=== PATIENT | female | born 1995 ===

== ENCOUNTER 2018-07-03 06:03 | Day surgery (SDC) | payer OTHER ==
[2018-07-02 13:26] VITALS: BMI 23.8
[2018-07-03] MEDS ORDERED: fentaNYL CITRATE 250 MCG/5 ML VIAL ONE (07:40)
[2018-07-03] MEDS ORDERED: ROCURONIUM BROMIDE 50 MG/5 ML VIAL ONE ×2 (07:40→09:44)
[2018-07-03] MEDS ORDERED: PROPOFOL 20 ML ONE (07:41)
[2018-07-03] MEDS ORDERED: LIDOCAINE HCL/PF 2% SDV 5ML VIAL ONE (07:41)
[2018-07-03] MEDS ORDERED: SUCCINYLCHOLINE CHLORIDE 200 MG/10 ML VIAL ONE (07:41)
[2018-07-03] MEDS ORDERED: MIDAZOLAM HCL 2 MG/2 ML SINGLE DOSE VIAL ONE (07:41)
[2018-07-03] MEDS ORDERED: BUPIVACAINE HCL/PF 0.5% (5MG/ML) 10 ML VIAL ONE (08:29)
--- NOTE | 2018-07-03 08:54 | HP ---
History & Physical Update - History History: No Change - Physical Physical: No Change - Assessment Assessment: No Change - Plan Plan: No Change
[2018-07-03] MEDS ORDERED: ceFAZolin SODIUM 1 GM VIAL IVPB ONE (09:08)
[2018-07-03] MEDS ORDERED: ceFAZolin SODIUM 1 GM VIAL ONE (09:30)
[2018-07-03] MEDS ORDERED: BUPIVACAINE HCL/PF 0.5% (5MG/ML) 10 ML VIAL IJ ONE ×2 (10:59)
[2018-07-03] MEDS ORDERED: NEOSTIGMINE METHYLSULFATE 0.5 MG/ML - 10 ML MDV ONE (11:07)
[2018-07-03] MEDS ORDERED: GLYCOPYRROLATE 0.2 MG/1 ML VIAL ONE (11:07)
[2018-07-03] MEDS ORDERED: KETOROLAC TROMETHAMINE 30 MG/1 ML VIAL ONE (11:08)
--- NOTE | 2018-07-03 11:52 | OP ---
Operative Note - Note: Operative Date: 07/03/18 Pre-Operative Diagnosis: Bilateral Ovarian cysts Operation: Laparoscopic robotic assisted bilateral ovarian cystectomy Findings: as dictated Implants: n/a Post-Operative Diagnosis: Same as Pre-op Surgeon: Marielle Singh Tubular Splitting Machine Tender: Carlyn Paredes Anesthesiologist/SALES FLOOR MANAGER: Haja Dickey Anesthesia: General, Local (200cc Marcaine injected to incision sites at completion of case) Specimens Removed: Left and right ovarian cyst Estimated Blood Loss (mls): 100 (ml) Drains, Volume Out (mls): 200 (ml yellow urine) Fluid Volume Replaced (mls): 900 (ml IVF) Operative Report Dictated: Yes
--- NOTE | 2018-07-03 11:55 | SURG ---
Surgery Admitting Officer Note Admitting Officer: Carlyn Paredes PA-C Date of Service: 07/03/18 Diagnosis: Bilateral Ovarian cysts Procedure: Laparoscopic robotic assisted bilateral ovarian cystectomy I was present for the entirety of the operative procedure. For further detail, please refer to operative report. Visit type - Case Type Case Type: Scheduled - Emergency Emergency Visit: No - New patient This patient is new to me today: Yes Date on this admission: 07/03/18 - Critical Care Critical Care patient: No
[2018-07-03] MEDS ORDERED: IBUPROFEN 600 MG TABLET (FP) PO PRN (12:29)
--- NOTE | 2018-07-03 12:35 | OP ---
Operative Note - Note: Operative Date: 07/03/18 Pre-Operative Diagnosis: Pelvic Pain. ovarian cyst. endometrioma Operation: Laparoscopic robotic bilateral ovarian cystectomies Findings: bilateral ovarian endometriomas right and left cystectomy mild hydrosalpinx normal fimbrias ovarians stuck together and attached to bowel Post-Operative Diagnosis: Same as Pre-op Surgeon: Marielle Singh Data Keyer: Carlyn Paredes (Etelvina Mast) Anesthesia: General Estimated Blood Loss (mls): 100 Operative Report Dictated: Yes
[2018-07-03] MEDS ORDERED: oxyCODONE HCL 5 MG TABLET PO PRN ×2 (13:32)
[2018-07-03] MEDS ORDERED: ONDANSETRON 4 MG/2 ML VIAL IVPUSH PRN (13:32)
[2018-07-03] MEDS ORDERED: LACTATED RINGERS SOLUTION 1,000 ML IV SCH (13:45)
[2018-07-03 17:59] VITALS: BP 120/60; PULSE 78; TEMP 99.6
--- NOTE | 2018-07-08 07:22 | OP ---
DATE OF OPERATION: 07/03/2018 PREOPERATIVE DIAGNOSIS: Pelvic pain and ovarian cyst and endometrioma. OPERATION: Laparoscopic robotic bilateral ovarian cystectomies, both right and left cystectomies performed. Some mild hydrosalpinx noted on both tubes, but normal fimbria. Also operation is lysis of adhesions. FINDINGS: The ovaries were stuck together and also attached to the bowels. SURGEON: Wendy Berkowitz MD ENGINEERING PROFESSOR: ROSSY Garcia, and ROSSY Talley ANESTHESIA: General. ESTIMATED BLOOD LOSS: 100 mL. PROCEDURE: Patient was taken to the operating room, placed in dorsal lithotomy position, prepped and draped in the usual sterile fashion. A time-out was performed in accordance with hospital regulations. A Dc catheter was inserted into the bladder. Attention was then drawn to the umbilicus, where an 8-mm umbilical incision was made. Veress needle was inserted into the cavity. Approximately 3-4 L of CO2 was insufflated in the cavity. Veress needle was then removed, and 8-mm trocars were then inserted. Laparoscope and camera were attached, and visualization revealed bilateral enlarged ovaries, left and right, both were stuck together and numerous adhesions throughout the pelvis as well as bilateral hydrosalpinx, but normal fimbria. Two trocars were placed on the left, one in the upper abdomen. A 5-mm incision was made and AirSeal was then inserted. Also, an 8-mm incision was made, and 8-mm trocar was inserted 8 cm parallel to the umbilical incision. Two parallel incisions were made on the right side, both 8 to 10 cm apart, and placed under direct visualization trocar. The Da Sherrie Robot was then sized out to the patients left side, and trocars were then inserted onto the Da Sherrie Robot. Placement was confirmed, and [place] and fenestrated bipolar and EndoShears were all inserted into the arm. Attention was drawn to the console where grasp of the ovaries was done and cautery and cutting of the ovaries was done to remove them from being stuck together. Chocolate material was seen coming out of both ovaries. Both cysts were seen, and using blunt and sharp technique, cystectomies were performed both on the right and the left sides. Lysis of adhesions was done. Numerous adhesions were in the cul-de-sac. So, lysis of adhesions was then done to remove and clean up the abdomen. After sufficient lysis of adhesions including of the abdomen, the cysts were then removed. Trocars were removed from the abdomen. CO2 was removed. Da Sherrie Robot was removed from the patients and undocked, and incisions were then closed using 0 Vicryl sutures in a continuous fashion. The wounds were washed and dried. Patient had tolerated the procedure well. Estimated blood loss was about 100 mL. WENDY BERKOWITZ M.D. [id number]
--- NOTE | 2018-07-08 12:56 | PATH ---
Surgical Pathology Report Patient Name: BEST JETER [facility]. Rec. #: [id number] /Age/Gender: 1995 (Age: 23) / F Account: [id number] Location: AMBULATORY SURG Taken: 07/03/2018 Received: 07/03/2018 Reported: 07/08/2018 Physicians: Marielle Singh M.D. Specimen(s) Received A: LEFT OVARIAN CYST B: RIGHT OVARIAN CYST Clinical History Ovarian cyst Final Diagnosis A. LEFT OVARIAN CYST, EXCISION: BENIGN OVARIAN TISSUE WITH ENDOMETRIOSIS (ENDOMETRIOID CYST). SEE COMMENT. B. RIGHT OVARIAN CYST, EXCISION: BENIGN OVARIAN TISSUE WITH ENDOMETRIOSIS (ENDOMETRIOID CYST). SEE COMMENT. Comment: CD10 performed (on block A2 and B2) at [place], [place] ([id number]) and interpreted at Health system highlights the endometrial stroma in the cyst wall. Positive and negative controls (internal if applicable) show appropriate results. Electronically Signed Lucrecia Mathew M.D. Gross Description A. Received in formalin labeled "left ovarian cyst," is a 4.0 x 2.0 x 1.0 cm disrupted cyst. The outer surface is [place] and smooth. The inner lining is brown with a hemorrhagic appearance. Monument Mason sections are submitted in 3 cassettes. B. Received in formalin labeled "right ovarian cyst," is a 5.5 x 2.8 x 1.0 cm disrupted cyst. The outer surface is [place] and smooth. Sectioning reveals brown, focally hemorrhagic parenchyma. Monument Mason sections are submitted in 4 cassettes. /07/03/2018 saudi07/03/2018
== END 2018-07-03 16:45 | disposition home or self-care (01) ==
LOC: JASUSAT 06:03
PROVIDERS: ATTEND Obstetrics & Gynecology
PROC: 0UB24ZZ Excision of Bilateral Ovaries, Percutaneous Endoscopic Approach (ICD-10-PCS; principal; 2018-07-03 09:00)
DX: N83.202 Unspecified ovarian cyst, left side (principal); N83.201 Unspecified ovarian cyst, right side; N70.11 Chronic salpingitis; K66.0 Peritoneal adhesions (postprocedural) (postinfection); N80.1 Endometriosis of ovary
CPT/HCPCS: 86850; 86900; 86901; 88304-TC; 94760